=== PATIENT | female | born 1995 | race Caucasian/White ===

== ENCOUNTER 2017-02-13 23:55 | Emergency (ER) | payer OTHER ==
--- NOTE | ~2017-02-13 | US63 ---
[facility] A Service of [facility] RADIOLOGY TEXT RESULTS PATIENT: NAGA REAVES LOCATION: [facility] : [birth year] UNIT #: [id number] AGE: [address]: Stephan Hayes SEX: F ORDER DR: [id number] [facility] [address] [place], [place] [address] [id number] MR#: [id number] Acc #: [id number] NAME: NAGA REAVES : 1995 SEX: F STUDY DATE/TIME: 02/14/2017 4:34 UNIT: [place] ROOM: STUDY DESCRIPTION: US /Mat >14Wk / Attending Physician: Stephan Hayes P.A.-C. Ordering Physician: Stephan Hayes P.A.-C. Primary Care Physician: David Mejia M.D. MEDICAL IMAGING REPORT This report is preliminary unless electronic signature is present EXAMINATION Transabdominal ultrasound DATE: 02/14/2017 HISTORY Severe abdominal pain, right for 1 week, worse over the last 2 days. Intrauterine device placed 2 years ago. Denies bleeding. COMPARISON None. FINDINGS Single intrauterine is demonstrated. There is a fetus with crown rump length approximates 12.5 cm. Placenta is demonstrated in the posterior fundal region. There is a detectable heart rate in the range of 155 beats per minute. biometric measurements including head circumference, biparietal diameter, abdominal circumference and femur length were obtained, corresponding to an estimated sonographic gestational age 17 weeks 1 day with estimated date of liver, 08/03/2017. No subchorionic hemorrhage is identified. The cervical os appears closed. Neither the right nor left ovary is visualized. This study is not performed for detailed anatomic survey, but no gross abnormalities are identified on this exam. No pelvic free fluid is evident. No intrauterine device is in visualized. IMPRESSION 1. Single viable intrauterine with estimated sonographic gestational age of 17 weeks 1 day and estimated date of delivery [facility] A Service of [facility] RADIOLOGY TEXT RESULTS PATIENT: NAGA REAV[id number] : [birth year] UNIT #: [id number] AGE: [address]: Stephan Hayes PAC SEX: F ORDER DR: 08/03/2017. No acute findings. heart rate in the range of 155 beats per minute. Dictated by... Maria Luisa Maxwell M.D. THIS IS AN ELECTRONICALLY VERIFIED REPORT Maria Luisa Maxwell M.D. at 02/14/2017 9:56 PM [facility]/vickie TD: 02/14/2017 07:52 JOB #: [id number] MEDICAL IMAGING REPORT Page 1 of 1 COPY
[~2017-02-13 23:55] MED LIST: IRON1 TAB PO; PEPCID AC20 M2 PO; PRENATAL1 TA1 PO
[2017-02-14 01:17] LABS: BASOPHIL# 0.1 X10e3 (0-0.3); BASOPHIL% 0.6 % (0-2.5); EOSINOPHIL# 0.2 X10e3 (0-0.7); EOSINOPHIL% 1.4 % (0.0-7.0); HEMATOCRIT 37.2 % (35.0-45.0); HEMOGLOBIN 12.5 gm/dL (12.0-16.0); LYMPHOCYTE% 24.7 % (17.0-45.0); MEAN CELL VOLUME 86.6 FL (83-96); MEAN CORPUSCULAR HEMOGLOBIN 29.1 PG (28-34); MEAN CORPUSCULAR HGB CONC 33.6 g/dL (30-36); MEAN PLATELET VOLUME 10.1 FL (6.5-11.5); MONOCYTE% 8.5 % (3.0-12.0); NEUTROPHIL% 64.8 % (40-75); PLATELET COUNT 227 X10e3 (140-420); RED CELL DISTRIBUTION WIDTH 13.8 % (11.0-15.5); WHITE BLOOD COUNT 12.3 X10e3 (4.0-10.5)
[2017-02-14 01:26] LABS: DIFF IND NO
[2017-02-14 01:29] LABS: URINE SOURCE CLEAN CATCH
[2017-02-14 01:33] LABS: URINE APPEARANCE TURBID; URINE BILIRUBIN NEG (NEG); URINE BLOOD NEG (NEG); URINE COLOR YELLOW; URINE GLUCOSE NEG (NEG); URINE KETONE NEG (NEG); URINE LEUKOCYTE ESTERASE 2+ (NEG); URINE NITRATE NEG (NEG); URINE PROTEIN NEG (NEG); URINE SPECIFIC GRAVITY 1.021 (1.003-1.035)
[2017-02-14 01:36] LABS: CULTURE INDICATED? YES; URBCS1 AUWI 0-2 /[HPF] (0-2); URINE BACTERIA AUWI 2+ (NEGATIVE); URINE SQUAMOUS EPITHELIAL CELL MOD /[HPF]
[2017-02-14 01:47] LABS: ALBUMIN SERUM 3.1 g/dL (3.5-5.0); BILIRUBIN, DIRECT 0.1 mg/dL (0.0-0.2); BILIRUBIN,INDIRECT 0.4 mg/dL (0.0-0.9); BILIRUBIN,TOTAL 0.5 mg/dL (0.2-2.0); BUN/CREATININE RATIO 17.14; CALCIUM SERUM 9.2 mg/dL (8.4-10.2); CREATININE SERUM 0.7 mg/dL (0.6-1.4); GLOM FILT RATE Estimated 124.7 mL/min (>60); POTASSIUM 3.9 mmol/L (3.5-5.1); PROTEIN TOTAL SERUM 6.4 g/dL (6.0-8.3)
== END 2017-02-14 05:25 | disposition home or self-care (01) ==
LOC: CED 23:55
DX: O99.89 Other specified diseases and conditions complicating pregnancy, childbirth and the puerperium (principal); R10.31 Right lower quadrant pain; O21.9 Vomiting of pregnancy, unspecified; O99.342 Other mental disorders complicating pregnancy, second trimester; F32.9 Major depressive disorder, single episode, unspecified; Z3A.17 17 weeks gestation of pregnancy
CPT/HCPCS: 36415; 76805; 80048; 80076; 81003; 83690; 84702; 84703; 85025; 87086; 96361; 96374; 99284; J2405